=== PATIENT | female | born 2000 | race Caucasian/White ===

== ENCOUNTER 2018-09-11 20:46 | Emergency (ER) | payer OTHER ==
[~2018-09-11] VITALS: Ht 162.6 cm; Wt 72.7 kg
[2018-09-11 21:11] LABS: BASO # 0.1 10^3/uL (0.0-0.2); BASO % 0.3 % (0.0-1.0); EOS # 0.5 10^3/uL (0.0-0.50); HEMATOCRIT 34.4 % (36.0-47.0); HEMOGLOBIN 12.2 g/dl (12.0-15.5); LYMPH # 3.5 10^3/uL (1.5-6.5); LYMPH % 22.8 % (24.0-44.0); MEAN CORPUSCULAR HEMOGLOBIN 32.1 pg (27.0-33.0); MEAN CORPUSCULAR HGB CONC 35.5 g/dl (32.0-36.5); MEAN CORPUSCULAR VOLUME 90.5 fl (80.0-96.0); MONO # 1.2 10^3/uL (0.0-0.8); MONO % 7.6 % (0.0-5.0); NEUTROPHILS % 65.8 % (36.0-66.0); PLATELET COUNT, AUTOMATED 285 10^3/uL (150-450); WHITE BLOOD COUNT 15.2 10^3/uL (4.0-10.0)
[2018-09-11 22:00] LABS: BLOOD UREA NITROGEN 9 MG/DL (7-18); CALCIUM LEVEL 8.9 MG/DL (8.5-10.1); CARBON DIOXIDE LEVEL 23 MEQ/L (21-32); CHLORIDE LEVEL 105 MEQ/L (98-107); CREATININE FOR GFR 0.58 MG/DL (0.55-1.30); GLUCOSE, FASTING 79 MG/DL (70-100); HCG, SERUM QUANTITATIVE 167430 MIU/ML; POTASSIUM SERUM 3.6 MEQ/L (3.5-5.1); SODIUM LEVEL 138 MEQ/L (136-145)
--- NOTE | 2018-09-11 22:35 | REPVR ---
EXAM: US First Trimester, Transabdominal EXAM DATE/TIME: 09/11/2018 9:16 PM CLINICAL HISTORY: 17 years old, female; Pain; Other: Cramping; Gestational age or lmp: 9; ; Additional info: Pelvic cramping/9 weeks TECHNIQUE: Imaging protocol: Real-time transabdominal obstetrical ultrasound of the maternal pelvis and a first trimester , less than 14 weeks 0 days, with image documentation. COMPARISON: No relevant prior studies available. FINDINGS: GESTATION: Gestation: See Placenta Finding. Heart rate: heartbeat of 171 beats per minute. Placenta: Gestational sac within the uterus with adjacent subchorionic hemorrhage measuring 20 x 11 x 23 mm. There is a pole and yolk sac. BIOMETRY: [place]-Rump length: The crown-rump length is 2.3 cm suggesting an age of 9 weeks 0 days. The EDC is 04/16/2019. MATERNAL: Uterus: Unremarkable. Cervix: Grossly unremarkable. Right adnexa: The right ovary measures 2.8 x 3.0 x 1.7 cm. Left adnexa: The left ovary measures 2.6 x 2.8 x 1.6 cm. Intraperitoneal: No intraperitoneal free fluid. IMPRESSION: 1. Early single live intrauterine fetus with an estimated age of 9 weeks 0 days. The EDC is 04/16/2019. 2. Small subchorionic hemorrhage measuring 20 x 11 x 23 mm. Electronically signed by: Sharad Conde On 09/11/2018 22:35:18 PM
[2018-09-11 23:26] LABS: CHLAMYDIA DNA AMPLIFICATION NEGATIVE (NEGATIVE); GC DNA AMPLIFICATION NEGATIVE (NEGATIVE)
[2018-09-11] MEDS ORDERED: RHOGAM 300 MCG (1500 IU) INJ (J2790) IM ONE (23:30)
[2018-09-12 00:14] VITALS: BP 109/69
== END 2018-09-12 00:17 | disposition home or self-care (01) ==
LOC: M ED 20:46
DX: O36.8911 Maternal care for other specified fetal problems, first trimester, fetus 1 (principal); Z3A.09 9 weeks gestation of pregnancy; O36.0191 Maternal care for anti-D [Rh] antibodies, unspecified trimester, fetus 1; O99.511 Diseases of the respiratory system complicating pregnancy, first trimester; Z86.2 Personal history of diseases of the blood and blood-forming organs and certain disorders involving the immune mechanism; Z88.8 Allergy status to other drugs, medicaments and biological substances; Z23 Encounter for immunization
CPT/HCPCS: 36415; 76801; 80048; 81001; 84702; 85025; 86850; 86901; 87210; 87661; 96372; 99284; J2790

== ENCOUNTER → 2018-11-25 | Outpatient (CLI) | payer OTHER ==
--- NOTE | 2018-11-25 14:21 | REP ---
REASON FOR EXAM: anatomy. PRIORS: None. Multiple ultrasonographic images of the gravid uterus show a single living intrauterine gestation and the transverse head to the maternal left position. Doppler interrogation of the heart shows a heart rate of 144 beats per minute. The placenta is anterior and now low lying. The cervix measures 4.9 cm in length and is closed. The subjective amniotic fluid volume is within normal limits. Evaluation of the maternal adnexal spaces showed no abnormalities. anatomical structures seen unremarkable are as follows: thalami, cavum septum pellucidum, cerebellum, cisterna magna, cerebral ventricles, upper lip, four chamber heart, right and left ventricular outflow tracts, stomach, cord insertion, three vessel umbilical cord, urinary bladder, and upper and lower extremities. These structures not well seen today are as follows: kidneys and spine. The kidneys did show bilateral pelviectasis which was mild. BPD 4.7 cm = 20 weeks 1 day HC 17.1 cm = 19 weeks 5 days AC 14.1 cm = 29 weeks 5 days FL 3.4 cm = 20 weeks 4 days The estimated weight is 308 grams which is at the 65th percentile for a 19 week 4 day gestational age. IMPRESSION: Single living intrauterine gestation as described above with an estimated gestational age of 20 weeks 0 days via composite criteria and an estimated date of delivery of 04/14/2019 by today's exam. No anomalies were detected, however, I recommend a followup examination to re-evaluate the kidneys and the spine. Electronically Signed by Hardeep Fuentes DO 11/25/2018 03:07 P
== END ==
LOC: M RAD 12:25
PROVIDERS: ATTEND Obstetrics & Gynecology
DX: Z36.89 Encounter for other specified antenatal screening (principal); Z3A.20 20 weeks gestation of pregnancy

== ENCOUNTER 2018-12-31 18:32 | Emergency (ER) | payer OTHER ==
[~2018-12-31] VITALS: Ht 162.6 cm; Wt 80.9 kg
[2018-12-31] MEDS ORDERED: ONDANSETRON 4 MG ORAL DISINTEGRATING TAB (Q0162 PER 1MG) PO ONE (19:30)
[2018-12-31 20:19] LABS: INFLUENZA A AMPLIFICATION NEGATIVE (NEGATIVE); INFLUENZA B AMPLIFICATION NEGATIVE (NEGATIVE)
[2018-12-31] MEDS ORDERED: ONDA4TAB6 PO (20:50)
[2018-12-31 21:02] VITALS: BP 125/66
== END 2018-12-31 21:04 | disposition home or self-care (01) ==
LOC: M ED 18:32
DX: J02.9 Acute pharyngitis, unspecified (principal); Z33.1 Pregnant state, incidental; Z3A.25 25 weeks gestation of pregnancy; J45.909 Unspecified asthma, uncomplicated; Z90.89 Acquired absence of other organs; Z88.8 Allergy status to other drugs, medicaments and biological substances
CPT/HCPCS: 87502; 87880; 99284; Q0162

== ENCOUNTER 2019-03-05 19:15 | Outpatient (CLI) | payer OTHER ==
[~2019-03-05] VITALS: Ht 162.6 cm; Wt 88.4 kg
[~2019-03-05 19:15] MED LIST: ONDA4TAB6 PO
[2019-03-05 19:35] VITALS: BP 123/61
[2019-03-05] MEDS ORDERED: MULTTAB20 PO (19:38)
[2019-03-05 20:27] LABS: AMORPHOUS SEDIMENT SMALL (NEGATIVE); APPEARANCE, URINE CLOUDY (CLEAR); BACTERIA, URINE AUTO NEGATIVE (NEGATIVE); BILIRUBIN, URINE AUTO NEGATIVE (NEGATIVE); BLOOD, URINE BLOOD NEGATIVE (NEGATIVE); COLOR, URINE YELLOW (YELLOW); GLUCOSE, URINE (UA) AUTO NEGATIVE (NEGATIVE); KETONE, URINE AUTO TRACE mg/dL (NEGATIVE); LEUKOCYTE ESTERASE, URINE AUTO 2+ (NEGATIVE); MUCUS, URINE SMALL (NEGATIVE); NITRITE, URINE AUTO NEGATIVE (NEGATIVE); PROTEIN, URINE AUTO NEGATIVE (NEGATIVE); RBC, URINE AUTO 9 /HPF (0-3); SPECIFIC GRAVITY URINE AUTO 1.012 (1.002-1.035); SQUAMOUS EPITHELIAL CELL UR AU 19 /HPF (0-6); UROBILINOGEN, URINE AUTO 0.2 mg/dL (0.0-2.0); WBC, URINE AUTO 5 /HPF (0-3)
[2019-03-05] MEDS ORDERED: LR 1,000 ML IV ONE (21:00)
--- NOTE | 2019-03-05 21:29 | IPNPDOC ---
Text Note Date of Service The patient was seen on 03/05/19. NOTE patient is a 18 yo G1 @ 33+6wks gestation presents with concern for decreased movement. States she use to feel baby move very often but today she has not been feeling baby move as much. patient has not been feeling well all day. had on and off diarrhea x2 days with emesis this am. patient has not been drinking much fluids today. denies ctx/lof/vb. vitals: normal NAD abd: nd, soft, gravid, nt, cephalic by dannielle ce: closed/long/high fht: 125/mod margret/pos accel/no decel toco: ctx q 3mins (Patient is not feeling the contractions) UA: contaminated a/p patient @ 33+6wks, not in labor. reactive tracing. patient feels improved with 1L iv hydration. discussed with patient importance to hydration. return precautions given. f/u with regularly scheduled appointment. DO Courtney VS,Drake, I+O VS, Patie, I+O Vital Signs Date Time Temp Pulse Resp B/P (MAP) Pulse Ox O2 Delivery O2 Flow Rate FiO2 03/05/19 19:35 98.2 83 18 123/61 (81) KD CARTER DO Mar 05, 2019 21:29
== END 2019-03-05 21:47 | disposition home or self-care (01) ==
LOC: M LDO 19:15
PROVIDERS: ATTEND Obstetrics & Gynecology
DX: O36.8130 Decreased fetal movements, third trimester, not applicable or unspecified (principal); O21.2 Late vomiting of pregnancy; O99.89 Other specified diseases and conditions complicating pregnancy, childbirth and the puerperium; R19.7 Diarrhea, unspecified; O99.283 Endocrine, nutritional and metabolic diseases complicating pregnancy, third trimester; E86.0 Dehydration; Z3A.33 33 weeks gestation of pregnancy
CPT/HCPCS: 59025; 81001; 87086; G0378; G0463